=== PATIENT | female | born 2000 | race Caucasian/White ===

== ENCOUNTER 2023-05-06 14:41 | Outpatient (CLI) | payer OTHER, SELFPAY ==
[2023-05-07 14:14] LABS: Strep B DNA Probe Negative (Negative)
[2023-05-07 23:57] LABS: Strep B Susceptibility Needed? No
== END 2023-05-06 14:42 | disposition home or self-care (01) ==
PROVIDERS: Visit Provider Registered Nurse
DX: Z34.93 Encounter for supervision of normal pregnancy, unspecified, third trimester (principal); Z3A.36 36 weeks gestation of pregnancy
CPT/HCPCS: 87081; 87340; 87653

== ENCOUNTER 2023-05-13 14:54 | Outpatient (CLI) | payer OTHER, SELFPAY ==
[2023-05-13 15:01] VITALS: BP 119/81; PULSE 92; RESP 18; TEMP 36.7
--- NOTE | 2023-05-13 17:35 | PC.OBNST ---
NST Note NST Note Start: 05/13/23 14:59 Freq: ONCE Status: Active Protocol: Document 05/13/23 16:00 SUSANNA (Rec: 05/13/23 17:35 SUSANNA [id number]) NST Note 1 Para (# of births) 0 EDC 05/29/23 Gestational Age In Weeks & Days 37 Weeks & 5 Days Patient Presented with Complaint(s) of Contractions/cramping,Other Other Complaints Fever, maternal and tachycardia at the clinic Reactive Yes Appropriate for Gestational Age Yes JIM Chance RN Date 05/13/23 Reactive Yes Appropriate for Gestational Age Yes JIM Chapman RN Date 05/13/23 OB NST charge Yes Complete NST Note via Write Note Yes The provider's electronic signature indicates the NST is reactive/appropriate for gestational age. *Note to provider: If an addendum is required, open the patient's chart and click on the note under the Nurse/Allied Health tab.
--- NOTE | 2023-05-24 15:38 | PC.OBNST ---
NST Note NST Note Start: 05/13/23 14:59 Freq: ONCE Status: Discharge Protocol: Document 05/13/23 16:00 SUSANNA (Rec: 05/13/23 17:35 SUSANNA [id number]) NST Note 1 Para (# of births) 0 EDC 05/29/23 Gestational Age In Weeks & Days 37 Weeks & 5 Days Patient Presented with Complaint(s) of Contractions/cramping,Other Other Complaints Fever, maternal and tachycardia at the clinic Reactive Yes Appropriate for Gestational Age Yes JIM Chance RN Date 05/13/23 Reactive Yes Appropriate for Gestational Age Yes JIM Chapman RN Date 05/13/23 OB NST charge Yes Complete NST Note via Write Note Yes The provider's electronic signature indicates the NST is reactive/appropriate for gestational age. *Note to provider: If an addendum is required, open the patient's chart and click on the note under the Nurse/Allied Health tab.
== END 2023-05-13 16:56 | disposition home or self-care (01) ==
LOC: OB OUT 14:55 → OB 14:55
PROVIDERS: Visit Provider Obstetrics & Gynecology
DX: O47.1 False labor at or after 37 completed weeks of gestation (principal); Z3A.37 37 weeks gestation of pregnancy
CPT/HCPCS: 59025; G0463

== ENCOUNTER 2023-05-14 17:04 | Inpatient (IN) | payer OTHER, SELFPAY ==
[2023-05-14] VITALS (11 sets, daily range): BP systolic 116–134; BP diastolic 57–73; PULSE 78–113; RESP 16–18; TEMP 36.4–37.1; O2SAT 99; BMI 36.6
--- NOTE | 2023-05-14 17:59 | W.PM.LDBA ---
Subjective History of Present Illness Time Seen by Provider: 17:59 Date Seen: 05/14/23 Narrative: Fariha is being admitted to Labor and Delivery for PROM at approximately 4:15 p.m. today. She is a 23 year old at weeks gestation. Her full history and physical was dictated by Keyana Cole CNP on 05/06/2023. Please see this for details. Specific Issues/Plans G 1 P 0 Transfer of care at 36 weeks. 1. Anemia. Was taking daily iron supplement. Informed patient she can switch to every other day iron supplement 2. Will be due for a Pap smear. She did not take baby aspirin throughout her . Flu: Completed Covid: Not vaccinated, declines. Recommended. 10/09/2022: First-trimester ultrasound: Single viable IUP with crown-rump length measurements consistent with LMP and confirm EDC of 05/29/2023. 01/15/2023: Ob anatomy scan: Single live IUP at 20 weeks 5 days. Present exam is concordant. Normal anatomic survey except for suboptimal visualization of feel spine and three-vessel view. Posterior placenta without previa. 02/11/2023: Ob follow-up ultrasound: Normal amniotic fluid volume, normal anatomic structures, normal spine and 3 VV which were not well visualized on prior ultrasound. Labs: Blood type B positive, antibody screen negative, hemoglobin 12.1, platelets 277, rubella positive, RPR nonreactive, hepatitis-B antigen[], HIV negative, chlamydia and gonorrhea both negative, hepatitis-C antibody negative, varicella positive, urine culture mixed microbiota, NIPT low risk, 1 hour glucose 109, hemoglobin April 05 10.2, hemoglobin April 07 10.4 OB - Problem Based A/P Additional Plan (1) PROM (premature rupture of membranes): Status: Acute OB Exam Physical Exam Vital signs: Temp Pulse Resp BP Pulse Ox 98.6 F 93 18 127/62 99 05/14/23 17:33 05/14/23 17:32 05/14/23 17:33 05/14/23 17:32 05/14/23 16:52 Narrative: GENERAL APPEARANCE: Pleasant, , well-groomed woman in no acute distress although appears somewhat anxious. VITAL SIGNS: as noted in nursing notes HEAD: Normocephalic, atraumatic. THYROID: no masses, nodularity, tenderness or enlargement. LUNGS: Clear to auscultation bilaterally without wheezes, rales or rhonchi. HEART: Regular rate and rhythm with normal S1 and S2. No gallop, rub or murmur. ABDOMEN: Gravid. Soft, nontender, nondistended, with normal bowels sounds throughout. EFW: Baseline: 130s, accelerations present, decelerations absent, moderate variability, reactive. Category 1 PRESENTATION: Vertex by bedside ultrasound. SVE per nursin-5 cm/ 90 %/ -3/soft/mid. Oshea score: 10 EXTREMITIES: No cyanosis, clubbing, or edema. No varicosities. NEUROLOGIC: Normal gait and balance. Normal deep tendon reflexes at bilateral patella 2+/2, equal without clonus. PSYCHIATRIC: alert and oriented x3. Normal speech pattern, eye contact and affect. SKIN: Warm, dry, and well perfused. Good turgor. No lesions, nodules or rashes.
[2023-05-15] VITALS (75 sets, daily range): BP systolic 75–132; BP diastolic 36–95; PULSE 75–163; RESP 15–18; TEMP 36.3–37.6; O2SAT 80–98
[2023-05-15] MEDS: LACTATED RINGERS 1000 ML 1,000 ML 1200 ML IV (02:34)
[2023-05-15] MEDS: ROPIVACAINE 0.2% 100 ml 100 ML 12 MG EPIDURAL ×2 (03:07→11:02)
--- NOTE | 2023-05-15 03:12 | PM.ANBPRC ---
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 Engaged. Living with david and his family. What is your current living situation?: I presently have a place to live Problems where you live: no known problems In the past 12 months, utilities in danger of being shut off: no In past 12 months, lack of transportation kept you from medical appts, meetings, work, or getting things needed for daily living: no In the past 12 mos, have been you worried that your food would run out before you had money to buy more?: never true In the past 12 mos, the food you bought just didn't last and you didn't have money to buy more?: never true Smoking Status: Never smoker How often does anyone, including family, friends and others, physically hurt you: never How often does anyone, including family, friends and others, insult or talk down to you: never How often does anyone, including family, friends and others, threaten you with harm: never How often does anyone, including family, friends and others, scream or curse at you: never Little interest or pleasure in doing things: more than half the days Feeling down, depressed, or hopeless: not at all Meds Home Medications and Allergies Home Medications Medication Instructions Recorded Confirmed Type docosahexaenoic acid 200 mg 200 mg PO DAILY 05/06/23 05/14/23 History capsule ( DHA) ferrous sulfate 325 mg (65 mg 325 mg PO DAILY 05/06/23 05/14/23 History iron) tablet (FeroSul) Allergies Allergy/AdvReac Type Severity Reaction Status Date / Time No Known Drug Allergies Allergy Verified 05/13/23 14:14 Results Vital Signs Vital Signs: Last Vital Signs Temp 97.4 F L 05/15/23 02:12 Pulse 86 05/15/23 03:10 Resp 17 05/15/23 02:12 BP 101/59 L 05/15/23 03:10 Pulse Ox 85 L 05/15/23 02:55 Weight: 92.351 kg Height: 158.75 cm Anesthesia Procedures Epidural Insertion Patient Location: OB Start Time: 02:15 Stop Time: 03:15 Start Date: 05/15/23 Stop Date: 05/15/23 Reason for Block: procedure for pain Patient Position: sitting Performed By: Shoshana Hernandez Preanesthetic Checklist: IV checked, risks and benefits discussed, monitors and equipment checked, timeout performed and anesthesia consent Prep: chlorhexidine gluconate Monitoring: blood pressure monitoring, continuous pulse oximetry and heart rate Approach: midline Vertebral Space: lumbar (1-5) Epidural Technique: OLU saline Needle Type: Tuohy needle Injection Technique: continuous catheter Needle gauge: 17 Needle Length (cm): 10 cm Needle Insertion Depth (cm): 9 Catheter Gauge: 19 Catheter Type: multi-orifice Catheter at skin depth (cm): 14 Test Dose Result: negative and lidocaine 1.5% with epinephrine 1 to 200,000
[2023-05-15] MEDS: LACTATED RINGERS 1000 ML 1,000 ML 125 ML IV (06:34)
[2023-05-15] MEDS: OXYTOCIN 30 unit/500 ML in NS 30 UNIT/500 ML BAG IVPB (06:41)
[2023-05-15] MEDS: PHENYLEPHRINE 100 MCG/ML SYRINGE IVP ×3 (08:52→09:14)
[2023-05-15] MEDS: OXYTOCIN 10 UNIT/ML INJ IV (12:25)
[2023-05-15] MEDS: miSOPROStoL 800 MCG/4 TABLET PR (12:34)
--- NOTE | 2023-05-15 13:06 | W.PM.VAGDEL1 ---
Procedure Delivery date: 05/15/23 Procedure Done: Global Events: Premature Rupture of Membrane Intrapartal Events: ROM >18 Hours Delivery augmentation: pitocin Delivery monitor: external FHT Route of delivery: Estimated blood loss (mL): 450 Anesthesia type: Epidural Disposition: floor Narrative: Fariha is a 23 year-old G1 P 0 admitted on 05/14/23 at 37 and 6/7 weeks gestation for ruptured of membrane. Cervical exam on admission was 5 cm/90 % effaced/-3station with membranes ruptured in vertex presentation. Contractions were every 3 minutes. heart rate demonstrated baseline 130 bpm with moderate variability, positive accelerations, negative decelerations; a category I tracing. GBS neg. SROM occurred at 1600 on 05/14/23 with clear fluid. Labor Analgesia: Nitrous Gas/Epidural Pitocin: Yes Labor onset: 05/15/2023 at 0220 Complete: 05/15/2023 at 11 15 Pushing: The 05/14/2023 11 20 heart tones during second stage were II with small variables during pushing that self resolve with cessation of pushing At 12 15 a viable female infant delivered in vertex OA presentation over intact perineum via spontaneous vaginal delivery. was placed on maternal abdomen. Cord was clamped and cut after a 30-60 second delay. Nose and mouth were bulb suctioned. weight: Pending. 9 at 1 minute and 9 at 5 minutes. Shoulder dystocia: Yes. Right shoulder. Two RNs were present in the room already for help. I asked patient to stop pushing right away when the shoulder dystocia was identified. Brief 15 seconds shoulder dystocia that resolved with Jenn maneuver and suprapubic pressure. Discussed with patient and her family (FOB, grandmother x 2 and sisters) that baby's shoulder was briefly impacted but resolved with repositioning of the pelvis. Family was grateful for the explanation and care. Nuchal cord: No. Terminal meconium: Yes Placenta delivered spontaneously and complete at 1218 with a 3 vessel cord. Sent to pathology due to placental calcification. She has lower uterine segment atony that resolved with fundal massage, evacuation of clot from the lower uterine segment, 40 units of Pitocin and 800 mcg of Cytotec. Complications: Shoulder dystocia, uterine atony. Mother and infant were stable after delivery. Laceration(s): 2 cm right vaginal side wall, repaired with 2-0 vicyl in continuous locking manner. Estimated blood loss: 450 mL. Sponge and needles counts are correct. Mother and infant were stable at the time of this note. No obvious injury noted on baby at this time. No bruising. Moving all limbs freely and equally. Fariha is planning on breast feeding.
[2023-05-15 18:49] LABS: Basophils Percent Auto 0.1 % (0.0-3.0); Eosinophils Percent Auto 0.1 % (0.0-7.0); Hematocrit 31.6 % (33.0-51.0); Hemoglobin* 10.5 gm/dL (12.0-16.0); Immature Granulocytes Pct Auto 0.2 %; Lymphocytes Percent Auto 7.3 % (20-44); Mean Corpuscular HGB Conc 33 gm/dL (32-36); Mean Corpuscular Hemoglobin 30 pg (26-34); Mean Corpuscular Volume 90 fL (80-100); Monocytes Percent Auto 9.6 % (0.0-11.0); Neutrophils Percent Auto 82.7 % (42.0-72.0); Platelet Count* 247 K/uL (140-440); RDW Coefficient of Variation % 15.3 % (11.5-15.5); Red Blood Count 3.52 m/uL (4.00-5.20); White Blood Count* 23.13 K/uL (4.50-11.00)
[2023-05-15 18:54] LABS: Slide Review Reflex No
[2023-05-16 04:20] VITALS: BP 104/64; PULSE 85; RESP 16; TEMP 36.7; O2SAT 98
[2023-05-16 08:00] VITALS: BP 107/69; PULSE 96; RESP 16; TEMP 36.7; O2SAT 98
--- NOTE | 2023-05-16 08:56 | PM.OBPNVD1 ---
OB - PN:Subj Subjective Time Seen by Provider: 08:30 Date Seen: 05/16/23 Patient comments OB post-: no complaints Narrative: The patient is a 23-year-old 1, para 1 seen on day 1. She is status post normal spontaneous vaginal delivery complicated by brief shoulder dystocia on 05/15/2023. Antepartum course was complicated by PROM and anemia. Patient is feeling well this morning, no acute concerns. Notes mild soreness of her bottom, no significant abdominal pain. She ambulates without difficulty, no dizziness/lightheadedness. Tolerating p.o. intake, without nausea or vomiting. Lochia is described as moderate. She is spontaneously voiding, passing gas. No bowel movement yet. Hgb 10.0. Planning to bottle feed via exclusive pumping versus formula. Pump provided at bedside. OB - PN: Obj Exam Physical Exam: Vital signs: Temp Pulse Resp BP Pulse Ox O2 Del Method 98.1 F 85 16 104/64 98 Room Air 05/16/23 04:20 05/16/23 04:20 05/16/23 04:20 05/16/23 04:20 05/16/23 04:20 05/16/23 04:20 Narrative: VITAL SIGNS: Noted above. GENERAL APPEARANCE: Alert, cooperative female in no acute distress. ABDOMEN: Soft, nondistended and nontender. Uterine fundus palpates at umbilicus. EXTREMITIES: Equal bilateral lower extremity edema, well-perfused, nontender bilaterally. OB - PN: Obj Data Labs Labs: Laboratory Results - last 24 hr 05/15/23 05/16/23 18:26 07:43 WBC 23.13 H RBC 3.52 L Hgb 10.5 L 10.0 L Hct 31.6 L MCV 90 MCH 30 MCHC 33 RDW Coeff of Varun 15.3 Plt Count 247 Neut % (Auto) 82.7 H Lymph % (Auto) 7.3 L Clarke % (Auto) 9.6 Eos % (Auto) 0.1 Baso % (Auto) 0.1 Neut # (Auto) 19.10 H Lymph # (Auto) 1.70 Clarke # (Auto) 2.20 H Eos # (Auto) 0.00 Baso # (Auto) 0.00 Abs Immat Gran (auto) 0.00 Imm/Tot Granulo (auto) 0.2 Blood Type B Positive Antibody Screen NEGATIVE OB - PN: A/P Delivery Assessment and Plan (1) PROM (premature rupture of membranes): Status: Acute Plan day: 1 Plan: routine care Comments: Anticipate dismissal to home tomorrow. Routine cares.
--- NOTE | 2023-05-16 15:02 | P.DS_ITS ---
DS: Providers Provider Date Seen: 05/16/23 Date of admission: 05/14/23 17:04 Primary care physician: Not a Local Provider Admitting Clinician: Faviola Lovelace MD Attending Physician on discharge: Faviola Lovelace MD Exam Narrative: Exam Narrative: Please see physical exam from my progress note this morning, not repeated. Const: Vital Signs, click to edit/add: Vital Signs - 24 hr 05/15/23 16:24 05/15/23 19:38 05/15/23 23:16 Temperature 98.3 F 98.2 F 98.5 F Pulse Rate [Pulse Oximeter] 103 H 99 96 Respiratory Rate 16 15 18 Blood Pressure [Le ft Arm] 117/71 115/72 112/78 Pulse Oximetry 97 97 98 Oxygen Delivery Me thod Room Air Room Air Room Air Nasal Can nula 05/16/23 04:20 05/16/23 08:00 Temperature 98.1 F 98.0 F Pulse Rate [Pulse Oximeter] 85 96 Respiratory Rate 16 16 Blood Pressure [Le ft Arm] 104/64 107/69 Pulse Oximetry 98 98 Oxygen Delivery Me thod Room Air Room Air OB - DS: Summary Hospital Course Hospital Course: The patient is a 23 year old G1P 1 at 37 weeks gestation that was admitted to the Center on 05/14/23 for prelabor rupture of membranes. She had an vaginal delivery complicated by brief shoulder dystocia. She delivered a liveborn , Sadie. She is bottle feeding and pumping. the patient has done well. She was meeting all appropriate milestones at time of my rounding this morning. Patient subsequently decided she'd like to dismiss to home. No interval change in her history. Peripartum Data Infant delivery method: Vaginal Laceration description: Vaginal - 1st Degree Gender: Female Time Spent with Patient Time attestation: Total time spent providing and/or coordinating discharge services: Discharge Plan Discharge Disposition: Home, Self-Care Date of Admission: 05/14/23 17:04 Primary Care Provider: Provider,Not a Local Condition: Stable Anticipated Discharge Date/Time: 05/16/23 15:07 Discharge Medications: Continued DHA 200 mg capsule 200 mg PO DAILY ferrous sulfate [FeroSul] 325 mg (65 mg iron) tablet 325 mg PO DAILY Discharge Orders: Discharge Order (Routine); Ordered 05/16/23 Ordered By: Cecilia Martinez Patient Education: Vaginal Delivery (DC) Additional Instructions: Discharge instructions were reviewed with the patient including signs and symptoms of infection and home going medications Nothing vaginally for 6 weeks: no tampons or intercourse Do not drive while taking narcotic pain medication(s) Pain: - Ibuprofen 600mg Q6H as needed - Tylenol 1000mg Q6H as needed - Perineal cares - carmelita bottle, sitz baths, witch joe pads as needed Off Work or School for 8 weeks Symptoms to report to doctor: * Bleeding that saturates more than one pad per hour * Passing clots larger than the size of a golf ball * Pain not relieved by prescribed medication * Fever above 100.4 degrees Fahrenheit * A foul vaginal odor * Difficulty in emotions, mood, and functions * Thoughts of hurting yourself and/or * Painful, reddened area in your breast * Any drainage, redness, or tenderness in your IV/epidural site * Severe headache that doesn't improve after taking medications * Changes in vision, including temporary loss of vision, blurred vision, and/or light sensitivity * Upper abdominal pain (usually under ribs on the right side) * Decrease in urination or painful, frequent urinating * Chest pain * Shortness of breath * Tenderness or pain with redness and/swelling in the calf(s) of your leg Optional 2-week visit: discuss infant feeding concerns, review control options and screen for anxiety/depression. 6-week visit for an annual exam. consultation services are available to all mothers and babies for the first year after delivery.? To make an appointment, please call [phone]. Activity Level: Activity as Tolerated Discharge Diet: Regular Follow Up Appointments: Provider,Not a Local [Primary Care Provider] - Forms: [employer] Info Instructions
[2023-05-17 01:05] LABS: Rapid Plasma Reagin (RPR) Non Reactive (Non Reactive)
== END 2023-05-16 16:40 | disposition home or self-care (01) | DRG 806 ==
LOC: OB OUT 05-15 09:29 → OB 05-15 09:29
PROVIDERS: Obstetrics & Gynecology; Admitting Provider Obstetrics & Gynecology; Visit Provider Obstetrics & Gynecology
DX: O42.02 Full-term premature rupture of membranes, onset of labor within 24 hours of rupture (principal); O71.4 Obstetric high vaginal laceration alone; O99.013 Anemia complicating pregnancy, third trimester; D64.9 Anemia, unspecified; O66.0 Obstructed labor due to shoulder dystocia; O62.2 Other uterine inertia; Z37.0 Single live birth; Z3A.37 37 weeks gestation of pregnancy
CPT/HCPCS: 01967; 36415; 76815; 85018; 85025; 86592; 86850; 86900; 86901; 88307; A9270; J0665; J2371; J2590; J2795; J7120

== ENCOUNTER 2023-08-11 14:06 | Outpatient (CLI) | payer OTHER, SELFPAY ==
[2023-08-11 18:00] LABS: Chlamydia DNA Amplified* NOT DETECTED (No Detected); GC DNA Amplified* NOT DETECTED (No Detected)
== END 2023-08-11 14:07 | disposition home or self-care (01) ==
LOC: NFLDREF 14:06
PROVIDERS: Visit Provider Advanced Practice Midwife
DX: Z01.419 Encounter for gynecological examination (general) (routine) without abnormal findings (principal); Z11.3 Encounter for screening for infections with a predominantly sexual mode of transmission
CPT/HCPCS: 87491; 87591